=== PATIENT | female | born 1960 | race Caucasian/White ===

== ENCOUNTER → 2017-06-14 | Outpatient (CLI) | payer BC ==
--- NOTE | 2017-06-14 17:06 | DI ---
ULTRASOUND OF THE LEFT ANTERIOR CHEST WALL, 06/14/2017 3:26 PM: Clinical History: Mass in the left anterior chest wall. Previous Exam: None at this facility. 2-D real-time imaging is performed in multiple projections through the upper left anterior chest infe rior to the clavicle. Color Doppler ultrasound is also performed. Limited scans are performed over th e right chest for comparison. Scans performed by the technologist and by myself reveals no discrete solid or cystic mass. There is no evidence of a discrete lipoma. The pectoralis major and minor muscles are normal. Readin. No discrete mass is seen in either in the subcutaneous fat or in the musculature in the left uppe r anterior chest. 2. The patient was advised to perform monthly self examinations over the left anterior chest to madalyn tor the lesion over the next 2 - 3 months. She was instructed to contact her health care provider pro mptly if the lump becomes larger during that time. Otherwise, if the lump disappears or remains stabl e, she was advised to have a follow-up clinical examination with her health care provider in approxim ately 2 - 3 months to verify those findings of the patient. If at the time of the clinical examinatio n of the chest there is still clinical concern regarding this lesion, then surgical consultation woul d be indicated.
== END ==
LOC: US 15:20
PROVIDERS: ATTEND Nurse Practitioner Family
DX: R22.2 Localized swelling, mass and lump, trunk (principal)
CPT/HCPCS: 76604